=== PATIENT | female | born 1950 | race Caucasian/White ===

== ENCOUNTER → 2022-04-16 | Outpatient (CLI) | payer MEDICARE, BC ==
[~2022-04-16] MED LIST: CYCL10 PO; IBUP600 PO; Percocet 5-3251 EACH PO; Zofran Odt4 MG SL
[2022-04-16 16:06] LABS: BASOPHILS ABSOLUTE AUTO 0.03 K/mm3 (0.00-0.23); BASOPHILS PERCENT AUTO 1 % (0-2); EOSINOPHILS ABSOLUTE AUTO 0.08 K/mm3 (0.00-0.68); EOSINOPHILS PERCENT AUTO 1 % (0-6); Hematocrit 39.4 % (33.0-51.0); Hemoglobin 13.1 g/dL (11.5-16.0); IMMATURE GRAN ABSOLUTE AUTO 0.01 K/mm3 (0.00-0.10); IMMATURE GRAN PERCENT AUTO 0 % (0-1); LYMPHOCYTES ABSOLUTE AUTO 2.25 K/mm3 (0.84-5.20); LYMPHOCYTES PERCENT AUTO 37 % (21-46); MONOCYTES ABSOLUTE AUTO 0.68 K/mm3 (0.16-1.47); MONOCYTES PERCENT AUTO 11 % (4-13); Mean Corpuscular HGB 29.4 pg (26.0-34.0); Mean Corpuscular HGB Conc 33.2 g/dL (31.5-36.5); Mean Corpuscular Volume 89 fL (80-100); Mean Platelet Volume 9.5 fL (9.1-12.4); NEUTROPHILS ABSOLUTE AUTO 3.12 K/mm3 (1.96-9.15); NEUTROPHILS PERCENT AUTO 51 % (41-73); Platelet Count 334 K/mm3 (150-400); RDW Coefficient Variation 12.2 % (11.7-14.2); RDW Standard Deviation 39.5 fL (35.1-46.3); Red Blood Cell Count 4.45 M/mm3 (3.80-5.20); White Blood Cell Count 6.17 K/mm3 (4.00-11.30)
== END ==
LOC: LAB 13:46 → LAB SHORT 13:46
PROVIDERS: Physician Assistant
DX: Z79.899 Other long term (current) drug therapy (principal)
CPT/HCPCS: 82306; 84443; 85025

== ENCOUNTER → 2023-10-21 | Outpatient (CLI) | payer MEDICARE, BC | END | disposition home or self-care (01) | LOC: LAB SHORT 10:32 → LAB 10:32 | DX: Z11.59 Encounter for screening for other viral diseases (principal); E11.9 Type 2 diabetes mellitus without complications; I10 Essential (primary) hypertension; E55.9 Vitamin D deficiency, unspecified; E78.5 Hyperlipidemia, unspecified; E87.6 Hypokalemia; F41.9 Anxiety disorder, unspecified; R53.83 Other fatigue ==

== ENCOUNTER 2024-04-16 07:39 | Day surgery (SDC) | payer MEDICARE, BC ==
[~2024-04-16] VITALS: Ht 154.9 cm; Wt 60.4 kg
[~2024-04-16 07:39] MED LIST changes: +ATOR40TA PO; +CHLO25B; +CHLO25B PO; +Lidocaine HCl 4% 5 ML SDA ONE; +NS 500 ML IV ONE; +OMEP20ER PO; +POTA10T PO; +Povidone-Iodine 450 DROP/30 ML Solution ONE; +Tetracaine HCl/Pf 0.5% Opth Soln 4 ml ONE; +Triamcinolone Inj Susp 40 MG / ML 1ML Vial ONE
--- NOTE | 2024-04-16 08:05 | NUR ---
04/16/24 0805 Paula Apple AT [address] AT [address]
[2024-04-16] MEDS ORDERED: NS 500 ML IV ONE (08:11)
[2024-04-16] MEDS ORDERED: Midazolam HCl 1MG / ML 2ML Vial ONE (08:48)
[2024-04-16] MEDS ORDERED: BSS PLUS/EPINEPHRINE IRRIGATION SOLUTION 500 ML IR ONE (08:56)
[2024-04-16 09:22] VITALS: BP 131/60
== END 2024-04-16 09:20 | disposition home or self-care (01) ==
LOC: ORSCSDS 07:39
PROVIDERS: Ophthalmology
PROC: 08RJ3JZ Replacement of Right Lens with Synthetic Substitute, Percutaneous Approach (ICD-10-PCS; principal; 2024-04-16 09:00)
DX: H25.813 Combined forms of age-related cataract, bilateral (principal); F41.9 Anxiety disorder, unspecified; F32.A Depression, unspecified; E78.5 Hyperlipidemia, unspecified; I10 Essential (primary) hypertension; J44.9 Chronic obstructive pulmonary disease, unspecified; Z79.899 Other long term (current) drug therapy
CPT/HCPCS: J2003; J2250; J3301; J7040; V2632